=== PATIENT | female | born 1965 | race Hispanic/Latino ===

== ENCOUNTER 2018-08-23 09:46 | Emergency (ER) | payer BC ==
--- NOTE | 2018-08-23 10:20 | ER ---
Nurse's Notes [facility] Name: Tashia Liao Age: 52 yrs Sex: Female : 1965 Arrival Date: 08/23/2018 Time: 09:53 Bed Waiting Private MD: Casey Lopez B Diagnosis: Assessment: 08/23 10:10 [facility] ER registration reports that patient left ss because she did not want to wait. ED Course: 09:53 Patient arrived in ED. sb2 09:54 Casey Lopez MD is Private Physician. sb2 Administered Medications: No medications were administered Outcome: : Eloped from waiting room, Time discovered patient gone: August 23, 2018 at 10:10 ss 10:20 Patient left the ED. Signatures: Tanesha Lees, RN RN Jacy Mandujano sb2
== END 2018-08-23 10:20 | disposition left against medical advice (07) ==
LOC: ER 09:46
DX: Z53.21 Procedure and treatment not carried out due to patient leaving prior to being seen by health care provider (principal)

== ENCOUNTER 2021-06-29 15:45 | Observation (INO) | payer BC, SELFPAY ==
[2021-06-29 16:32] LABS: Absolute Lymphocytes (CBC) 0.9 K/uL (0.7-4.9); Basophils % 0.2 % (0-1.3); Hematocrit 45.7 % (36.0-45.0); Lymphocytes % 4.9 % (15.3-44.8); MPV 8.1 fL (7.6-11.3); RBC Red Blood Cell Count 5.32 M/uL (3.86-4.86)
[2021-06-29 16:36] LABS: Urine Blood Trace-intact (Negative); Urine Glucose Negative (Negative); Urine Protein 2+ (Negative)
[2021-06-29 16:51] LABS: ALT/SGPT 62 U/L (12-78); AST/SGOT 32 U/L (15-37); Alkaline Phosphatase 117 U/L (45-117); BUN Blood Urea Nitrogen 12 mg/dL (7-18); Bicarbonate 27 mmol/L (21-32); Bilirubin Direct 0.2 mg/dL (0-0.2); Bilirubin Total 0.6 mg/dL (0.2-1.0); Glucose Level 186 mg/dL (74-106); Lipase 156 U/L (73-393); Potassium 4.2 mmol/L (3.5-5.1); Sodium Level 142 mmol/L (136-145); Troponin (Emerg Dept Use Only) < 0.02 ng/mL (0.0-0.045)
[2021-06-29] MEDS ORDERED: HYDROMORPHONE HCL 1 MG/ML INJ ONE (16:56)
[2021-06-29] MEDS ORDERED: ONDANSETRON 4 MG/2 ML VIAL ONE ×2 (16:56→21:22)
[2021-06-29] MEDS ORDERED: NA CHLORIDE 0.9% 1,000 ML ONE ×3 (16:56→21:22)
[2021-06-29 17:07] LABS: Urine Bacteria <20 /HPF (<20); Urine RBC <5 /HPF (NONE SEEN)
--- NOTE | 2021-06-29 17:59 | RAD REPORT ---
EXAM DESCRIPTION: CT - Abdomen Pelvis W Contrast - 06/29/2021 5:40 pm CLINICAL HISTORY: Abdominal pain COMPARISON: none. TECHNIQUE: Computed axial tomography of the abdomen pelvis was obtained. 100 cc Isovue-300 was admin istered intravenously. Oral contrast was not requested which limits evaluation of bowel. All CT scans are performed using dose optimization technique as appropriate and may include automated exposure control or mA/KV adjustment according to patient size. FINDINGS: The liver, spleen, pancreas, adrenal appear unremarkable. 1 millimeter calculus proximal right ureter. Minimal right hydronephrosis. 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 Normal appendix No adnexal mass Small umbilical hernia IMPRESSION: 1 millimeter calculus proximal right ureter with minimal right hydronephrosis
[2021-06-29] MEDS ORDERED: METRONIDAZOLE 500mg IVPB 500 MG/100 ML BAG IV ONE (18:02)
[2021-06-29] MEDS ORDERED: CIPROFLOXACIN 400mg IV 400 MG/200 ML BAG IV ONE (18:02)
--- NOTE | 2021-06-29 18:31 | EDPHYS ---
Physician Documentation [facility] Name: Tashia Liao Age: 55 yrs Sex: Female : 1965 Arrival Date: 06/29/2021 Time: 15:48 Bed 6 Private MD: ED Physician Colby Walton HPI: 06/29 16:03 This 55 yrs old Female presents to ER via EMS with complaints of sp3 Nausea/Vomiting/Diarrhea. 16:03 55-year-old female with a history of hypertension and diabetes presents with a 2-day sp3 history of vomiting, diarrhea, epigastric pain after attending a "constitution party" on Tuesday. Patient states that multiple people attend parties are having the same symptoms. Diarrhea has been multiple episodes and is described as loose but not bloody or mucus filled in any capacity. Emesis has been noncoffee-ground mainly food contents. Abdominal pain is crampy epigastric pain without radiation. Patient denies shortness of breath, neck pain, chest pain, back pain, lower abdominal pain, rash, change in urine output, neuro symptoms, any other symptoms at this time. Remainder of ROS negative. Patient is afebrile and has not had any fever. Patient has had Covid vaccine.. Historical: - Allergies: 15:52 No Known Allergies; jl7 - Home Meds: 19:29 None [Active]; df1 - PMHx: 15:52 Diabetes mellitus; Hypertensive disorder; jl7 - PSHx: 19:29 section; df1 - Immunization history:: Adult Immunizations up to date, Client reports receiving the 2nd dose of the Covid vaccine, Moderna. - Social history:: Smoking status: Patient reports the use of cigarette tobacco products, smokes one-half pack cigarettes per day. ROS: 16:04 Constitutional: Negative for fever, chills, and weight loss, Eyes: Negative for injury, sp3 pain, redness, and discharge, ENT: Negative for injury, pain, and discharge, Neck: Negative for injury, pain, and swelling, Cardiovascular: Negative for chest pain, palpitations, and edema, Respiratory: Negative for shortness of breath, cough, wheezing, and pleuritic chest pain, Back: Negative for injury and pain, : Negative for injury, bleeding, discharge, and swelling, MS/Extremity: Negative for injury and deformity, Skin: Negative for injury, rash, and discoloration, Neuro: Negative for headache, weakness, numbness, tingling, and seizure, Psych: Negative for depression, anxiety, suicide ideation, homicidal ideation, and hallucinations, Allergy/Immunology: Negative for hives, rash, and allergies, Endocrine: Negative for neck swelling, polydipsia, polyuria, polyphagia, and marked weight changes, Hematologic/Lymphatic: Negative for swollen nodes, abnormal bleeding, and unusual bruising. 16:04 All other systems are negative. Exam: 16:05 Constitutional: This is a well developed, well nourished patient who is awake, alert, sp3 and in no acute distress. Head/Face: Normocephalic, atraumatic. Eyes: Pupils equal round and reactive to light, extra-ocular motions intact. Lids and lashes normal. Conjunctiva and sclera are non-icteric and not injected. Cornea within normal limits. Periorbital areas with no swelling, redness, or edema. ENT: Nares patent. No nasal discharge, no septal abnormalities noted. External auditory canals are clear. Oropharynx with no redness, swelling, or masses, exudates, or evidence of obstruction, uvula midline. Mucous membranes moist. Neck: Trachea midline, no thyromegaly or masses palpated, and no cervical lymphadenopathy. Supple, full range of motion without nuchal rigidity, or vertebral point tenderness. No Meningismus. Chest/axilla: Normal chest wall appearance and motion. Nontender with no deformity. No lesions are appreciated. Cardiovascular: Regular rate and rhythm with a normal S1 and S2. No gallops, murmurs, or rubs. Normal PMI, no JVD. No pulse deficits. Respiratory: Lungs have equal breath sounds bilaterally, clear to auscultation and percussion. No rales, rhonchi or wheezes noted. No increased work of breathing, no retractions or nasal flaring. Back: No spinal tenderness. No costovertebral tenderness. Full range of motion. Skin: Warm, dry with normal turgor. Normal color with no rashes, no lesions, and no evidence of cellulitis. MS/ Extremity: Pulses equal, no cyanosis. Neurovascular intact. Full, normal range of motion. Neuro: Awake and alert, GCS 15, oriented to person, place, time, and situation. Cranial nerves II-XII grossly intact. Motor strength 5/5 in all extremities. Sensory grossly intact. Cerebellar exam normal. Normal gait. Psych: Awake, alert, with orientation to person, place and time. Behavior, mood, and affect are within normal limits. 16:05 Abdomen/GI: The patient has mild epigastric pain to palpation without peritoneal signs including rebound or guarding. Bowel sounds are present and normal. No pain McBurney's point and negative Kaba sign.. Vital Signs: 15:49 BP 144 / 91; Pulse 114; Resp 19; Temp 98.8; Pulse Ox 98% ; Weight 77.11 kg; jl7 16:43 BP 140 / 80; Pulse 108; Resp 15; Pulse Ox 98% ; jl7 18:00 BP 136 / 70; Pulse 111; Resp 15; Pulse Ox 97% ; jl7 18:35 BP 136 / 86; Pulse 110; Resp 18; Temp 100.9; Pulse Ox 95% ; Pain 9/10; jl7 19:01 Pain 5/10; jl7 19:34 BP 136 / 86; Pulse 110; Resp 18; Pulse Ox 99% on R/A; df1 19:58 BP 129 / 89; Pulse 107; Resp 15; Temp 99.4; Pulse Ox 98% on R/A; Pain 3/10; bs2 MDM: 15:56 Patient medically screened. sp3 16:05 Data reviewed: vital signs, nurses notes. ED course: 55-year-old female with likely sp3 food related illness. Will obtain CT scan of the abdomen and pelvis, laboratory values, cardiac markers, EKG, normal saline, Dilaudid, Zofran IV for symptomatic treatment. If work-up is negative will discharge patient home with PCP follow-up. At this time I am not highly suspicious for acute coronary syndrome, pulmonary Ruth, sepsis, shock, gallbladder pathology, appendicitis, bowel obstruction, peritonitis, vascular compromise, any other critical findings at this time.. 17:31 ED course: Patient has elevated WBC with left shift and continued mild epigastric pain sp3 which is improved with the Dilaudid given earlier. Given GI symptoms and leukocytosis, will go ahead and treat with Cipro and Flagyl IV. Patient also has mild UTI which these antibiotics will cover. Only outstanding diagnostic tests as the CT scan which will likely be signed out to the night team. Patient to be discharged if CT demonstrates no actionable findings on p.o. Cipro and Flagyl.. 18:26 ED course: CT scan reviewed which demonstrates 1 mm calculus in the proximal right sp3 ureter and UA also demonstrates infection. Patient's history also is congruent with Salmonella infection after further information retrieved by patient regarding onions from [place] that were tainted with Salmonella. Therefore we will treat for both UTI, small kidney stone, and GI compromise. I believe the majority of symptoms are GI related as the diarrhea has continued. Will treat with Rocephin which will cover all entities. . 06/29 16:01 Order name: Basic Metabolic Panel; Complete Time: 17:23 sp3 06/29 16:01 Order name: CBC with Diff; Complete Time: 17:23 sp3 06/29 16:01 Order name: Hepatic Function; Complete Time: 17:23 sp3 06/29 16:01 Order name: Lipase; Complete Time: 17:23 sp3 06/29 16:02 Order name: Troponin (emerg Dept Use Only); Complete Time: 17:23 sp3 06/29 16:02 Order name: CT Abd/Pelvis - IV Contrast Only; Complete Time: 18:25 sp3 06/29 16:07 Order name: COVID-19 SARS RT PCR (Document "Date of Onset" if Symptomatic); Complete sp3 Time: 18:06/29 16:28 Order name: Urine Microscopic Only bp 06/29 16:29 Order name: Urine Microscopic Only; Complete Time: 17:23 EDMS 06/29 16:36 Order name: Urine Dipstick-Ancillary; Complete Time: 17:23 EDMS 06/29 17:08 Order name: Urine Culture EDMS 06/29 16:01 Order name: IV Saline Lock; Complete Time: 16:27 sp3 06/29 16:01 Order name: Labs collected and sent; Complete Time: 16:27 sp3 06/29 16:02 Order name: EKG - Nurse/Tech; Complete Time: 16:43 sp3 06/29 16:02 Order name: Urine Dipstick-Ancillary (obtain specimen); Complete Time: 16:42 sp3 Administered Medications: 16:43 Not Given (Patient Refused): Dilaudid (HYDROmorphone) 1 mg IVP once; RASS on ADMIN: jl7 Combtv4, Very Agttd3, Agttd2, Rstlss1, AlertClm0, Drwsy-1, Lt Sdtn-2, Mod Sdtn-3, Dp Sdtn-4, UnArsble-5 16:43 Not Given (Patient Refused): Zofran (Ondansetron) 4 mg IVP once; over 2 minutes jl7 16:43 Drug: NS 0.9% 1000 ml Route: IV; Rate: 1 bolus; Site: right antecubital; jl7 18:10 Follow up: IV Status: Completed infusion; IV Intake: 1000ml jl7 17:59 Drug: Cipro (ciprofloxacin) 400 mg Volume: 200 ml; Route: IVPB; Infused Over: 60 mins; jl7 Site: right antecubital; 18:56 Follow up: Response: No adverse reaction; IV Status: Completed infusion jl7 17:59 Drug: Flagyl (metroNIDAZOLE) 500 mg Volume: 100 ml; Route: IVPB; Rate: 200 ml/hr; jl7 Infused Over: 30 mins; Site: right antecubital; 18:29 Follow up: Response: No adverse reaction; IV Status: Completed infusion jl7 17:59 Drug: NS 0.9% 1000 ml Route: IV; Rate: 1 bolus; Site: right antecubital; jl7 19:36 Follow up: IV Status: Completed infusion; IV Intake: 1000ml df1 18:48 Drug: Zofran (Ondansetron) 4 mg Route: IVP; Site: right antecubital; jl7 19:28 Follow up: Response: Nausea is decreased df1 18:50 Drug: Dilaudid (HYDROmorphone) 1 mg {Note: 0.5 mg administered per pt request.} Route: jl7 IVP; Site: right antecubital; 19:00 Follow up: Response: No adverse reaction; Pain is decreased jl7 18:56 Drug: Tylenol 650 mg Route: PO; jl7 19:28 Follow up: Response: No adverse reaction df1 18:56 Drug: Rocephin (cefTRIAXone) 1 grams Route: IV; Rate: calculated rate; Site: right jl7 antecubital; 19:28 Follow up: IV Status: Completed infusion df1 19:28 Drug: ProTONIX (pantoprazole) 40 mg Route: IVP; Site: right antecubital; df1 19:34 Follow up: BP 136 / 86; Pulse 110 bpm; Resp 18 bpm; Pulse Ox 99% RA df1 Disposition Summary: 06/29/21 18:42 Hospitalization Ordered Hospitalization Status: Observation sp3 Location: Telemetry/MedSurg (observation)(06/29/21 18:42) sp3 Condition: Stable(06/29/21 18:42) sp3 Problem: new sp3 Symptoms: are unchanged sp3 Bed/Room Type: Standard sp3 Provider: Levar Patel(06/29/21 19:04) lee Room Assignment: 420(06/29/21 19:47) Diagnosis - Salmonella enteritis(06/29/21 18:42) sp3 - Kidney Stone/ Calculus in bladder(06/29/21 18:42) sp3 - Acute cystitis sp3 Forms: - Medication Reconciliation Form sp3 - SBAR form sp3 Signatures: Dispatcher [employer] EDMS Caryl Hull RN RN mw Jaskaran Wu, SUPERVISOR SMOKE CONTROL-C SUPERVISOR SMOKE CONTROL-[facility] Adrienne Ty RN RN jl7 Colby Walton MD MD sp3 Connie Bledsoe df1 Corrections: (The following items were deleted from the chart) 16:58 16:03 URINALYSIS+U.LAB.BRZ ordered. EDID EDMS 18:36 18:30 Home sp3 sp3 18:36 18:30 Stable sp3 sp3 18:36 18:30 Salmonella enteritis sp3 sp3 18:36 18:30 Kidney Stone/ Calculus in bladder sp3 sp3 18:36 18:30 UTI/ Urinary tract infection, site not specified sp3 sp3 18:38 18:26 ED course: CT scan reviewed which demonstrates 1 mm calculus in the proximal sp3 right ureter and UA also demonstrates infection. Patient's history also is congruent with Salmonella infection after further information retrieved by patient regarding onions from [place] that were tainted with Salmonella. Therefore we will treat for both UTI, small kidney stone, and GI compromise. I believe the majority of symptoms are GI related as the diarrhea has continued. Patient received Cipro and Flagyl IV we will switch to Bactrim which will treat both urine and GI Salmonella. Close follow-up will be maintained with patient's PCP and she will return here if symptoms worsen in any way.. sp3 19:04 18:42 Daniel Chun sp3 la1 19:47 18:42 sp3 mw
--- NOTE | 2021-06-29 18:31 | ER ---
Nurse's Notes [facility] Name: Tashia Liao Age: 55 yrs Sex: Female : 1965 Arrival Date: 06/29/2021 Time: 15:48 Bed 6 Private MD: Diagnosis: Salmonella enteritis;Kidney Stone/ Calculus in bladder;Acute cystitis Presentation: 06/29 15:49 Chief complaint: Patient states: Epigastric pain, N/V/D since this morning. Coronavirus jl7 screen: Vaccine status: Patient reports receiving the 2nd dose of the covid vaccine. Moderna At this time, the client does not indicate any symptoms associated with coronavirus-19. Ebola Screen: No symptoms or risks identified at this time. Initial Sepsis Screen: Does the patient meet any 2 criteria? No. Patient's initial sepsis screen is negative. Does the patient have a suspected source of infection? No. Patient's initial sepsis screen is negative. Risk Assessment: Do you want to hurt yourself or someone else? Patient reports no desire to harm self or others. Onset of symptoms was June 29, 2021. Care prior to arrival: Medication(s) given: Normal saline infusion, 500 mL, zofran 2 mg IV initiated. 20 GA, in the right antecubital area, Glucose check: 188. 15:49 Method Of Arrival: EMS: [facility] 15:49 Acuity: SRI 3 jl7 Triage Assessment: 15:52 General: Appears in no apparent distress. uncomfortable, Behavior is cooperative, jl7 appropriate for age, anxious. Pain: Complains of pain in epigastric area Pain does not radiate. Neuro: Level of Consciousness is awake, alert, obeys commands, Oriented to person, place, time, situation. Cardiovascular: Patient's skin is warm and dry. Respiratory: Airway is patent Respiratory effort is even, unlabored, Respiratory pattern is regular, symmetrical. GI: Reports diarrhea, nausea, vomiting. Derm: Skin is pink, warm \T\ dry. Historical: - Allergies: 15:52 No Known Allergies; jl7 - Home Meds: 19:29 None [Active]; df1 - PMHx: 15:52 Diabetes mellitus; Hypertensive disorder; jl7 - PSHx: 19:29 section; df1 - Immunization history:: Adult Immunizations up to date, Client reports receiving the 2nd dose of the Covid vaccine, Moderna. - Social history:: Smoking status: Patient reports the use of cigarette tobacco products, smokes one-half pack cigarettes per day. Screenin:53 Abuse screen: Denies threats or abuse. Denies injuries from another. Nutritional jl7 screening: No deficits noted. Tuberculosis screening: No symptoms or risk factors identified. Fall Risk IV access (20 points). Total Peck Fall Scale indicates No Risk (0-24 pts). Assessment: 16:00 General: See triage. jl7 16:00 GI: Reports diarrhea, nausea, vomiting. jl7 16:43 Reassessment: Patient appears in no apparent distress at this time. No changes from [facility] previously documented assessment. Patient and/or family updated on plan of care and expected duration. Pain level reassessed. Patient is alert, oriented x 3, equal unlabored respirations, skin warm/dry/pink. 18:00 Reassessment: Patient appears in no apparent distress at this time. No changes from [facility] previously documented assessment. Patient and/or family updated on plan of care and expected duration. Pain level reassessed. Patient is alert, oriented x 3, equal unlabored respirations, skin warm/dry/pink. 18:30 Reassessment: Dr. Walton at bedside discussing results and POC, pt will be hospitalized jl for observation. 18:50 Reassessment: CHELSEA Jessica at bedside assessing pt. jl7 Vital Signs: 15:49 BP 144 / 91; Pulse 114; Resp 19; Temp 98.8; Pulse Ox 98% ; Weight 77.11 kg; jl7 16:43 BP 140 / 80; Pulse 108; Resp 15; Pulse Ox 98% ; jl7 18:00 BP 136 / 70; Pulse 111; Resp 15; Pulse Ox 97% ; jl7 18:35 BP 136 / 86; Pulse 110; Resp 18; Temp 100.9; Pulse Ox 95% ; Pain 9/10; jl7 19:01 Pain 5/10; jl7 19:34 BP 136 / 86; Pulse 110; Resp 18; Pulse Ox 99% on R/A; df1 19:58 BP 129 / 89; Pulse 107; Resp 15; Temp 99.4; Pulse Ox 98% on R/A; Pain 3/10; bs2 ED Course: 15:48 Patient arrived in ED. jl7 15:51 Colby Walton MD is Attending Physician. sp3 15:51 Triage completed. jl7 15:52 Arm band placed on right wrist. jl7 15:53 Patient has correct armband on for positive identification. Bed in low position. Call jl7 light in reach. Side rails up X 1. clinical research monitor on. Pulse ox on. NIBP on. 15:54 Adrienne Ty, DAYNE is Primary Nurse. jl7 16:27 Initial lab(s) drawn, by me, sent to lab. Urine collected: clean catch specimen, jl7 cloudy, COVID swab sent to lab. Maintain EMS IV. Dressing intact. Good blood return noted. Site clean \T\ dry. Gauge \T\ site: 20 R AC. 16:43 EKG done, by ED staff, reviewed by Colby Walton MD. jl7 17:40 CT Abd/Pelvis - IV Contrast Only In Process Unspecified. EDMS 17:43 Urine Microscopic Only Sent. bp 18:40 Daniel Chun MD is Hospitalizing Provider. sp3 19:04 Levar Patel DO is Hospitalizing Provider. la1 19:56 No provider procedures requiring assistance completed. Patient admitted, IV remains in bs2 place. Administered Medications: 16:43 Not Given (Patient Refused): Dilaudid (HYDROmorphone) 1 mg IVP once; RASS on ADMIN: jl7 Combtv4, Very Agttd3, Agttd2, Rstlss1, AlertClm0, Drwsy-1, Lt Sdtn-2, Mod Sdtn-3, Dp Sdtn-4, UnArsble-5 16:43 Not Given (Patient Refused): Zofran (Ondansetron) 4 mg IVP once; over 2 minutes jl7 16:43 Drug: NS 0.9% 1000 ml Route: IV; Rate: 1 bolus; Site: right antecubital; jl7 18:10 Follow up: IV Status: Completed infusion; IV Intake: 1000ml 7 17:59 Drug: Cipro (ciprofloxacin) 400 mg Volume: 200 ml; Route: IVPB; Infused Over: 60 mins; jl7 Site: right antecubital; 18:56 Follow up: Response: No adverse reaction; IV Status: Completed infusion jl7 17:59 Drug: Flagyl (metroNIDAZOLE) 500 mg Volume: 100 ml; Route: IVPB; Rate: 200 ml/hr; jl7 Infused Over: 30 mins; Site: right antecubital; 18:29 Follow up: Response: No adverse reaction; IV Status: Completed infusion jl7 17:59 Drug: NS 0.9% 1000 ml Route: IV; Rate: 1 bolus; Site: right antecubital; jl7 19:36 Follow up: IV Status: Completed infusion; IV Intake: 1000ml df1 18:48 Drug: Zofran (Ondansetron) 4 mg Route: IVP; Site: right antecubital; jl7 19:28 Follow up: Response: Nausea is decreased df1 18:50 Drug: Dilaudid (HYDROmorphone) 1 mg {Note: 0.5 mg administered per pt request.} Route: jl7 IVP; Site: right antecubital; 19:00 Follow up: Response: No adverse reaction; Pain is decreased jl7 18:56 Drug: Tylenol 650 mg Route: PO; jl7 19:28 Follow up: Response: No adverse reaction df1 18:56 Drug: Rocephin (cefTRIAXone) 1 grams Route: IV; Rate: calculated rate; Site: right jl7 antecubital; 19:28 Follow up: IV Status: Completed infusion df1 19:28 Drug: ProTONIX (pantoprazole) 40 mg Route: IVP; Site: right antecubital; df1 19:34 Follow up: BP 136 / 86; Pulse 110 bpm; Resp 18 bpm; Pulse Ox 99% RA df1 Intake: 18:10 IV: 1000ml; Total: 1000ml. jl7 19:36 IV: 1000ml; Total: 2000ml. df1 Outcome: 18:30 Discharge ordered by . sp3 18:42 Decision to Hospitalize by Provider. sp3 19:59 Admitted to Med/surg accompanied by tech, via wheelchair, room 420, with chart. bs2 19:59 Condition: improved 19:59 Instructed on the need for admit. 20:17 Patient left the ED. bs2 Signatures: Dispatcher [employer] EDMS Jaskaran Wu, JODY-C PER DIEM PHYSICAL THERAPIST ASSISTANT-[facility]1 Adrienne Ty RN RN jl7 Andrew Marina RN RN Colby Kumar MD MD sp3 Radha Naqvi RN RN bs2 Connie Bledsoe df1
--- NOTE | 2021-06-29 19:04 | P.HP ---
Certification for Inpatient Patient admitted to: Observation With expected LOS: <2 Midnights Patient will require the following post-hospital care: None Practitioner: I am a practitioner with admitting privileges, knowledge of patient current condition, hospital course, and medical plan of care. Services: Services provided to patient in accordance with Admission requirements found in Title 42 Section 412.3 of the Code of Federal Regulations Patient History Date of Service: 06/29/21 Primary Care Provider: Out of town Reason for admission: Vomiting/diarrhea History of Present Illness: 55-year-old female with history of diabetes mellitus type 2, hypertension presents emergency department for abdominal pain, nausea, vomiting, diarrhea. Patient reports symptoms began early this morning and that she has had approximately 9 episodes of diarrhea today as well as multiple episodes of vomiting. Patient was evaluated in the emergency department labs were significant for white blood cell count 17.8 hemoglobin 15.3 medical 45.7 glucose 186 urine microscopic with 10-20 white blood cell but no bacteria present Covid negative CT abdomen pelvis with contrast demonstrates 1 mm calculus right ureter with minimal right hydronephrosis. Patient was given IV fluids/IV antibiotics in the emergency department but still is having significant pain and vomiting, ED prior wishes to admit under observation for suspected gastroenteritis. Patient with possible food poisoning/Salmonella as patient with a get together on Tuesday where multiple patients became ill with similar symptoms. Allergies No Known Allergies Allergy (Unverified 02/09/13 13:35) - Past Medical/Surgical History -: Diabetes mellitus type 2 -: Hypertension -: -: Back surgery Psychosocial/ Personal History: Patient lives at home with family - Family History Family History: Reviewed- Non-Contributory - Social History Smoking Status: Current every day smoker Counseled patient to stop smoking for: less than 10 minutes Smoking therapy provided: No Place of Residence: Home Review of Systems 10-point ROS is otherwise unremarkable General: Fever, Weakness, Malaise Gastrointestinal: Nausea, Vomiting, Abdominal Pain, Diarrhea Genitourinary: Dysuria, Frequency Physical Examination - Physical Exam General: Alert, In no apparent distress, Oriented x3 HEENT: Atraumatic, PERRLA, Mucous membr. moist/pink, EOMI, Sclerae nonicteric Neck: Supple, 2+ carotid pulse no bruit, No LAD, Without JVD or thyroid abnormality Respiratory: Clear to auscultation bilaterally, Normal air movement Cardiovascular: Regular rate/rhythm, Normal S1 S2 Gastrointestinal: Normal bowel sounds, Tenderness (Mild epigastric tenderness) Musculoskeletal: No tenderness Integumentary: No rashes Neurological: Normal speech, Normal strength at 5/5 x4 extr, Normal tone, Normal affect Lymphatics: No axilla or inguinal lymphadenopathy - Studies Laboratory Data (last 24 hrs) 06/29/21 16:24: WBC 17.80 H, Hgb 15.3 H, Hct 45.7 H, Plt Count 248 06/29/21 16:24: Sodium 142, Potassium 4.2, BUN 12, Creatinine 0.84, Glucose 186 H, Total Bilirubin 0.6, AST 32, ALT 62, Alkaline Phosphatase 117, Lipase 156 Assessment and Plan - Plan Assessment: Epigastric pain/vomiting/diarrhea likely secondary to gastroenteritis 1 mm proximal right ureterolithiasis Diabetes mellitus type 2 with hyperglycemia Hypertension Plan: Epigastric pain/vomiting/diarrhea likely secondary to gastroenteritis: Continue with IV fluids, Rocephin/Flagyl for possible Salmonella coverage. Stool studies ordered, twice daily Protonix. Clear liquids advance as tolerated 1 mm proximal right ureterolithiasis: Minimal right hydronephrosis noted, as needed pain medication. Suspect will pass without difficulty given size. Diabetes mellitus type 2 with hyperglycemia: [facility] Accu-Chek, sliding scale insulin therapy. A1c with morning lab. Hypertension: Obtain and continue medication. DVT PPX: Lovenox Code status: Full code Discharge Plan: Home Plan to discharge in: 24 Hours - Advance Directives Does patient have a Living Will: No Does patient have a Durable POA for Healthcare: No - Code Status/Comfort Care Code Status Assessed: Yes (Full code) Critical Care: No Time Spent Managing Pts Care (In Minutes): 55
[2021-06-29] MEDS ORDERED: ACETAMINOPHEN 325 MG TABLET ONE (19:08)
[2021-06-29] MEDS ORDERED: CEFTRIAXONE 1000 MG/VIAL ONE (19:08)
[2021-06-29] MEDS ORDERED: NA CHLORIDE 0.9% 50 ML ONE (19:08)
[2021-06-29] MEDS ORDERED: PANTOPRAZOLE 40 MG INJ ONE ×2 (19:41→21:22)
[2021-06-29] MEDS ORDERED: SODIUM CHLORIDE 0.9% 10ML INJ IV PRN (20:00)
[2021-06-29] MEDS ORDERED: ONDANSETRON 4 MG/2 ML VIAL IV PRN (20:00)
[2021-06-29] MEDS ORDERED: MORPHINE 2 MG/ML SYR IV PRN (20:00)
[2021-06-29] MEDS: INSULIN -REGULAR HUMAN 50 UNIT/0.5 ML ML SQ SCH (21:00)
[2021-06-29] MEDS ORDERED: ACETAMINOPHEN 500 MG TAB ONE (21:22)
[2021-06-29] MEDS: PANTOPRAZOLE 40 MG INJ IVP SCH (21:34)
[2021-06-29] MEDS: ACETAMINOPHEN 500 MG TAB PO PRN (21:34)
[2021-06-29] MEDS: NA CHLORIDE 0.9% 1,000 ML IV SCH (21:37)
[2021-06-29 21:55] VITALS: BMI 28.8
[2021-06-29] MEDS: METRONIDAZOLE 500mg IVPB 500 MG/100 ML BAG IV SCH (23:55)
[2021-06-30] MEDS ORDERED: METRONIDAZOLE 500mg IVPB 500 MG/100 ML BAG IV ONE (00:19)
[2021-06-30 02:18] LABS: Urine Appearance CLEAR (Clear); Urine Bilirubin NEGATIVE (Negative); Urine Blood NEGATIVE (Negative); Urine Color YELLOW (Yellow); Urine Glucose NEGATIVE (Negative); Urine Protein NEGATIVE (Negative); Urine Specific Gravity 1.025 (1.005-1.030); Urine Urobilinogen 0.2 mg/dL (0.2-1.0); Urine pH 5.5 (5.0-7.0)
[2021-06-30 02:24] LABS: Urine Microscopic Reflex ORDER UMIC
[2021-06-30 03:09] LABS: Urine Bacteria <20 /HPF (<20); Urine RBC <5 /HPF (NONE SEEN); Urine Urothelial Cells <5 /HPF (NONE SEEN)
[2021-06-30] MEDS: ACETAMINOPHEN 500 MG TAB PO PRN ×2 (03:48→11:26)
[2021-06-30] MEDS: NA CHLORIDE 0.9% 1,000 ML IV SCH ×2 (03:50→11:31)
[2021-06-30 04:15] LABS: Absolute Lymphocytes (CBC) 1.7 K/uL (0.7-4.9); Basophils % 0.2 % (0-1.3); Hematocrit 36.6 % (36.0-45.0); Lymphocytes % 17.8 % (15.3-44.8); MPV 8.3 fL (7.6-11.3); RBC Red Blood Cell Count 4.28 M/uL (3.86-4.86)
[2021-06-30 04:30] LABS: ALT/SGPT 40 U/L (12-78); AST/SGOT 19 U/L (15-37); Albumin 2.7 g/dL (3.4-5.0); Alkaline Phosphatase 76 U/L (45-117); BUN Blood Urea Nitrogen 9 mg/dL (7-18); Bicarbonate 24 mmol/L (21-32); Bilirubin Total 0.5 mg/dL (0.2-1.0); Glucose Level 145 mg/dL (74-106); HDL Cholesterol 30 mg/dL (40-60); LDL Cholesterol, Calculated 80 (<130); Magnesium 1.8 mg/dL (1.8-2.4); Potassium 3.8 mmol/L (3.5-5.1); Protein, Total 5.7 g/dL (6.4-8.2); Sodium Level 144 mmol/L (136-145); Thyroid Stimulating Hormone 0.409 uIU/mL (0.360-3.740)
[2021-06-30] MEDS ORDERED: MAGNESIUM SULFATE 1 gm IVPB 1 GM/100 ML BAG IV ONE (05:19)
--- NOTE | 2021-06-30 06:30 | P.PN ---
Subjective Date of Service: 06/30/21 Primary Care Provider: Out of town Chief Complaint: Vomiting/diarrhea Subjective: Improving (Overall improved. Better hydrated. Diarrhea improved.) Physical Examination - Vital Signs Temperature: 99.7 F Blood Pressure: 116/68 Pulse: 86 Respirations: 14 Pulse Ox (%): 95 - Studies Laboratory Data (last 24 hrs) 06/29/21 16:24: WBC 17.80 H, Hgb 15.3 H, Hct 45.7 H, Plt Count 248 06/29/21 16:24: Sodium 142, Potassium 4.2, BUN 12, Creatinine 0.84, Glucose 186 H, Total Bilirubin 0.6, AST 32, ALT 62, Alkaline Phosphatase 117, Lipase 156 Assessment & Plan Discharge Plan: Home Plan to discharge in: 24 Hours Physician Review Additional Text: COVID: Negative CT scan: COMPARISON: none. TECHNIQUE: Computed axial tomography of the abdomen pelvis was obtained. 100 cc Isovue-300 was administered intravenously. Oral contrast was not requested which limits evaluation of bowel. All CT scans are performed using dose optimization technique as appropriate and may include automated exposure control or mA/KV adjustment according to patient size. FINDINGS: The liver, spleen, pancreas, adrenal appear unremarkable. 1 millimeter calculus proximal right ureter. Minimal right hydronephrosis. 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 Normal appendix No adnexal mass Small umbilical hernia IMPRESSION: 1 millimeter calculus proximal right ureter with minimal right hydronephrosis Physical exam: General: Alert, In no apparent distress, Oriented x3 HEENT: Atraumatic, PERRLA, Mucous membr. moist/pink, EOMI, Sclerae nonicteric Neck: Supple, 2+ carotid pulse no bruit, No LAD, Without JVD or thyroid abnormality Respiratory: Clear to auscultation bilaterally, Normal air movement Cardiovascular: Regular rate/rhythm, Normal S1 S2 Gastrointestinal: Normal bowel sounds, Tenderness (Mild epigastric tenderness) Musculoskeletal: No tenderness Integumentary: No rashes Neurological: Normal speech, Normal strength at 5/5 x4 extr, Normal tone, Normal affect Lymphatics: No axilla or inguinal lymphadenopathy Assessment: Epigastric pain/vomiting/diarrhea secondary to gastroenteritis 1 mm proximal right ureterolithiasis Diabetes mellitus type 2 with hyperglycemia Hypertension Plan: Epigastric pain/vomiting/diarrhea secondary to gastroenteritis: Diarrhea improved. No significant nausea or vomiting this morning. Will advance diet to soft. Continue Rocephin and Flagyl to cover for possible Salmonella infection. Stool studies ordered. Encourage ambulation. Will reassess later to determine if patient can be discharged as early as today. 1 mm proximal right ureterolithiasis: Minimal right hydronephrosis noted. We will monitor this closely. Stone should be able to pass on its own. Diabetes mellitus type 2 with hyperglycemia: Continue Accu-Cheks and sliding scale. Hypertension: Obtain and review home medication. Blood pressure stable off medication at this time. DVT PPX: Lovenox Code status: Full code Discharge Plan: Home Time Spent Managing Pts Care (In Minutes): 55
[2021-06-30] MEDS: INSULIN -REGULAR HUMAN 50 UNIT/0.5 ML ML SQ SCH ×2 (07:30→11:27)
[2021-06-30] MEDS: METRONIDAZOLE 500mg IVPB 500 MG/100 ML BAG IV SCH (07:54)
[2021-06-30] MEDS: PANTOPRAZOLE 40 MG INJ IVP SCH (07:56)
[2021-06-30] MEDS ORDERED: POTASSIUM CL SA 10 MEQ TAB PO ONE (09:00)
[2021-06-30] MEDS ORDERED: ENOXAPARIN 40 MG/0.4 ML SQ SCH (09:00)
[2021-06-30 09:15] VITALS: O2SAT 96
--- NOTE | 2021-06-30 12:15 | EKG ---
Test Date: 2021-06-29 Test Time: 16:38:12 Shearing Machine Operator: PREET MEASUREMENT RESULTS: Intervals: Rate: 112 CO: 148 QRSD: 70 QT: 336 QTc: 458 [place]: P: 60 CO: 148 QRS: -56 T: 60 INTERPRETIVE STATEMENTS: Sinus tachycardia Left axis deviation Low voltage QRS Cannot rule out Anterior infarct, age undetermined Abnormal ECG No previous ECG available for comparison Electronically Signed On 06-30-21 12:12:54 CDT by Jeff Harding
[2021-06-30 13:06] VITALS: BP 116/68; TEMP 99.7
--- NOTE | 2021-06-30 13:21 | P.DS ---
Admission Date: 06/29/21 Discharge Date: 06/30/21 Primary Care Provider: Dr. Muir Disposition: ROUTINE DISCHARGE Discharge Condition: GOOD Reason for Admission: Vomiting/diarrhea Consultations: none Procedures: COVID: Negative CT scan: COMPARISON: none. TECHNIQUE: Computed axial tomography of the abdomen pelvis was obtained. 100 cc Isovue-300 was administered intravenously. Oral contrast was not requested which limits evaluation of bowel. All CT scans are performed using dose optimization technique as appropriate and may include automated exposure control or mA/KV adjustment according to patient size. FINDINGS: The liver, spleen, pancreas, adrenal appear unremarkable. 1 millimeter calculus proximal right ureter. Minimal right hydronephrosis. 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 Normal appendix No adnexal mass Small umbilical hernia IMPRESSION: 1 millimeter calculus proximal right ureter with minimal right hydronephrosis Medical problem list: Epigastric pain/vomiting/diarrhea secondary to gastroenteritis 1 mm proximal right ureterolithiasis Diabetes mellitus type 2 with hyperglycemia Hypertension Brief History of Present Illness: 55-year-old female with history of diabetes mellitus type 2 and hypertension presents emergency department for abdominal pain, nausea, vomiting, diarrhea. Patient reports symptoms began early this morning and that she has had approximately 9 episodes of diarrhea today as well as multiple episodes of vomiting. Patient was evaluated in the emergency department labs were significant for white blood cell count 17.8 hemoglobin 15.3 medical 45.7 glucose 186 urine microscopic with 10-20 white blood cell but no bacteria present. Covid negative. CT abdomen pelvis with contrast demonstrates 1 mm calculus right ureter with minimal right hydronephrosis. Patient was admitted for observation. Family reports other sick family members also were sick with similar complaints. Hospital Course: Patient presented with epigastric pain, nausea and vomiting with diarrhea. Other sick family members also with reported symptoms. Patient was admitted for further evaluation. Salmonella infection was suspected. Stool culture obtained. Culture pending at discharge. Patient doing well at this time. No significant diarrhea, nausea or vomiting at discharge. The patient will be discharged home. Due to the severity of her symptoms, the patient will continue with Levaquin 500 mg daily for the next 7 days. Patient will also be provided lactobacillus 1 pill 3 times a day for the next 10 days. Patient should follow- up with her PCP within 1 week. PCP will need to follow-up on stool culture results. Education on gastroenteritis and Salmonella infection will be provided. Patient also found to have a 1 mm proximal right ureteral lithiasis with minimal hydronephrosis. Patient should be able to pass this stone without difficulty. This can be followed up as an outpatient. Patient with diabetes mellitus type 2. At discharge patient will continue with her medication. Recommend to maintain blood sugar less than 140 fasting and less than 2 after meals. Further adjustment in medication can be done by her PCP. Recommend to recheck hemoglobin A1c every 3 months to monitor her progress. Patient with a history of hypertension. At discharge patient may continue with her medication. Recommend to maintain blood pressure less than 130/80. Further adjustment can be done by her PCP. Vital Signs/Physical Exam: Temp Pulse Resp BP Pulse Ox 99.7 F 86 14 116/68 95 06/30/21 13:06 06/30/21 13:06 06/30/21 13:06 06/30/21 13:06 06/30/21 13:06 General: Alert, In no apparent distress, Oriented x3, Cooperative HEENT: Atraumatic Neck: Supple Respiratory: Clear to auscultation bilaterally, Normal air movement Cardiovascular: Normal pulses, Regular rate/rhythm Gastrointestinal: Normal bowel sounds, No ascites, No tenderness, No masses, No rebound, No guarding Musculoskeletal: No erythema, No tenderness, No warmth Integumentary: No tenderness/swelling, No erythema, No warmth, No cyanosis Neurological: Normal speech, Normal strength at 5/5 x4 extr, Normal tone, Normal affect Laboratory Data at Discharge: WBC 9.40 K/uL (4.3-10.9) D 06/30/21 03:38 Hgb 12.5 g/dL (12.0-15.0) D 06/30/21 03:38 Hct 36.6 % (36.0-45.0) D 06/30/21 03:38 Plt Count 197 K/uL (152-406) D 06/30/21 03:38 Sodium 144 mmol/L (136-145) 06/30/21 03:38 Potassium 3.8 mmol/L (3.5-5.1) 06/30/21 03:38 BUN 9 mg/dL (7-18) 06/30/21 03:38 Creatinine 0.64 mg/dL (0.55-1.3) 06/30/21 03:38 Glucose 145 mg/dL (74-106) H 06/30/21 03:38 Magnesium 1.8 mg/dL (1.8-2.4) 06/30/21 03:38 Total Bilirubin 0.5 mg/dL (0.2-1.0) 06/30/21 03:38 AST 19 U/L (15-37) 06/30/21 03:38 ALT 40 U/L (12-78) 06/30/21 03:38 Alkaline Phosphatase 76 U/L (45-117) 06/30/21 03:38 Triglycerides 135 mg/dL (<150) 06/30/21 03:38 Cholesterol 137 mg/dL (<200) 06/30/21 03:38 HDL Cholesterol 30 mg/dL (40-60) L 06/30/21 03:38 Cholesterol/HDL Ratio 4.57 06/30/21 03:38 Lipase 156 U/L (73-393) 06/29/21 16:24 Home Medications: Multivitamin 1 each PO DAILY 06/29/21 Lactobacillus Acidophilus [Acidophilus Lactobacilli] 1 each PO TID #30 capsule 06/30/21 Levofloxacin [Levaquin] 500 mg PO DAILY #7 tablet 06/30/21 New Medications: Lactobacillus Acidophilus [Acidophilus Lactobacilli] 1 each PO TID #30 capsule Levofloxacin [Levaquin] 500 mg PO DAILY #7 tablet Physician Discharge Instructions: Patient presented with epigastric pain, nausea and vomiting with diarrhea. Other sick family members also with reported symptoms. Patient was admitted for further evaluation. Salmonella infection was suspected. Stool culture obtained. Culture pending at discharge. Patient doing well at this time. No significant diarrhea, nausea or vomiting at discharge. The patient will be discharged home. Due to the severity of her symptoms, the patient will continue with Levaquin 500 mg daily for the next 7 days. Patient will also be provided lactobacillus 1 pill 3 times a day for the next 10 days. Patient should follow- up with her PCP within 1 week. PCP will need to follow-up on stool culture results. Education on gastroenteritis and Salmonella infection will be provided. Patient also found to have a 1 mm proximal right ureteral lithiasis with minimal hydronephrosis. Patient should be able to pass this stone without difficulty. This can be followed up as an outpatient. Patient with diabetes mellitus type 2. At discharge patient will continue with her medication. Recommend to maintain blood sugar less than 140 fasting and less than 2 after meals. Further adjustment in medication can be done by her PCP. Recommend to recheck hemoglobin A1c every 3 months to monitor her progress. Patient with a history of hypertension. At discharge patient may continue with her medication. Recommend to maintain blood pressure less than 130/80. Further adjustment can be done by her PCP. Diet: ADA Activity: Ad jorden Followup: NONE,NONE [Primary Care Provider] - Time spent managing pt's care (in minutes): 55
[2021-06-30] MEDS ORDERED: CEFTRIAXONE 1 GM/NS 50 ML 1 GM/50 ML BAG IV SCH (18:00)
[2021-07-01 13:12] LABS: C.diff Antigen/Toxin Ag neg : Tox neg (NEG : NEG)
== END 2021-06-30 14:30 | disposition home or self-care (01) ==
LOC: ER 15:45 → ERHOLD 19:15 → 4TH 19:59
PROVIDERS: ADMIT Family Medicine; ATTEND Family Medicine
DX: K52.9 Noninfective gastroenteritis and colitis, unspecified (principal); N20.1 Calculus of ureter; E11.65 Type 2 diabetes mellitus with hyperglycemia; I10 Essential (primary) hypertension; Z20.822 Contact with and (suspected) exposure to COVID-19
CPT/HCPCS: 96365; 96367; 96361; 96368; 93005; 87088; 87045; 85025 ×2; 87086; 80048; 36415; 83735; 89055; 87177; 80061; 82947 ×3; 80076; 87046; 87209; 84443; 87324; 83036; 84484; 84439; 83690; 80053; 87449; 74177; 94010; 96375; 99285; U0003; Q9967; C9113 ×3; J1650; J3475; J1170; J7030 ×4; J0696; J2405 ×2; J0744; G0378 ×3; 81003; 81015